=== PATIENT | female | born 1960 | race Asian ===

== ENCOUNTER → 2018-12-24 | Outpatient (CLI) | payer OTHER | LOC: MC.RAD 14:42 | DX: Z12.31 Encounter for screening mammogram for malignant neoplasm of breast (principal) ==

== ENCOUNTER → 2019-10-28 | Outpatient (CLI) | payer BC | LOC: COL.VAS 13:28 | DX: R25.2 Cramp and spasm (principal) ==

== ENCOUNTER → 2019-12-28 | Outpatient (CLI) | payer BC | LOC: MC.RAD 10:00 | DX: Z12.31 Encounter for screening mammogram for malignant neoplasm of breast (principal) ==

== ENCOUNTER 2020-05-19 10:28 | Outpatient (CLI) | payer BC ==
[~2020-05-19] VITALS: Ht 157.5 cm; Wt 65.9 kg
[2020-05-19 10:15] VITALS: BP 121/78; PULSE 62; TEMP 98
[2020-05-19 11:00] VITALS: BP 112/59; PULSE 52
[2020-05-19 11:15] VITALS: BP 116/65; PULSE 55
[2020-05-19 11:30] VITALS: BP 113/65; PULSE 57
[2020-05-19 11:45] VITALS: BP 121/69; PULSE 53; TEMP 99
== END 2020-05-19 12:10 | disposition home or self-care (01) ==
LOC: EUO 10:28
DX: U07.1 COVID-19 (principal)

== ENCOUNTER → 2021-03-07 | Outpatient (CLI) | payer OTHER | LOC: COL.RAD 16:06 | DX: Z01.812 Encounter for preprocedural laboratory examination (principal) ==

== ENCOUNTER → 2021-09-28 | Outpatient (CLI) | payer OTHER | LOC: MC.RAD 16:30 | DX: Z12.31 Encounter for screening mammogram for malignant neoplasm of breast (principal) ==

== ENCOUNTER 2021-10-18 09:00 | Outpatient (RCR) | payer OTHER | END 2021-10-22 | disposition home or self-care (01) | LOC: WSPT | DX: M25.519 Pain in unspecified shoulder (principal) ==

== ENCOUNTER 2021-10-18 09:45 | Outpatient (RCR) | payer OTHER | END 2021-10-22 | disposition home or self-care (01) | LOC: WSOT | DX: G56.00 Carpal tunnel syndrome, unspecified upper limb (principal) ==

== ENCOUNTER 2021-10-26 14:15 | Outpatient (RCR) | payer OTHER | END 2021-11-22 | disposition home or self-care (01) | LOC: WSPT | DX: M25.519 Pain in unspecified shoulder (principal) ==

== ENCOUNTER 2021-10-26 15:00 | Outpatient (RCR) | payer OTHER | END 2021-11-22 | disposition home or self-care (01) | LOC: WSOT | DX: G56.00 Carpal tunnel syndrome, unspecified upper limb (principal) ==

== ENCOUNTER 2023-02-04 09:45 | Outpatient (RCR) | payer OTHER ==
[~2023-02-04 09:45] MED LIST: ADIPEX-P37.5 MG PO; CEPHALEXIN500 M1 PO; PERCOCET 325 MG1 TA2 PO
== END 2023-02-04 12:00 | disposition home or self-care (01) ==
LOC: WSPT 09:45
DX: M79.672 Pain in left foot (principal); M77.9 Enthesopathy, unspecified